=== PATIENT | female | born 1965 | race Caucasian/White ===

== ENCOUNTER 2019-12-14 06:09 | Day surgery (SDC) | payer BC ==
[2019-12-14] MEDS ORDERED: Lactated Ringers 1,000 ML IV SCH (06:30)
[2019-12-14] MEDS ORDERED: DIPRIVAN 200 MG/20 ML IV ONE ×2 (07:49→07:50)
[2019-12-14] MEDS ORDERED: Ketamine HCl 50 MG/ML ONE (07:50)
[2019-12-14 09:03] VITALS: O2SAT 94
[2019-12-14 09:16] VITALS: BP 162/85; PULSE 59
[2019-12-14] MEDS ORDERED: Lactated Ringers 1,000 ML IV ONE (14:54)
--- NOTE | 2019-12-14 15:05 | OP ---
SURGERY DATE: 12/14/2019 SURGERY TIME: 803 PREOPERATIVE DIAGNOSIS: 1. SCREENING COLONOSCOPY. 2. FAMILY HISTORY OF COLON CANCER. POSTOPERATIVE DIAGNOSIS: 1. SMALL SESSILE POLYP IN THE HEPATIC FLEXURE. PROCEDURE: 1. Colonoscopy. SURGEON: Dr. Baltazar Lima. ANESTHESIA: MAC by Yimi Rawls CRNA. SPECIMENS: 1. Hot forceps polypectomy from the hepatic flexure X 1. ESTIMATED BLOOD LOSS: Minimal. DESCRIPTION OF PROCEDURE: After informed written consent was obtained, the patient was taken to the endoscopy suite. She underwent monitored anesthesia and was placed in the left lateral decubitus position. Digital rectal exam showed normal sphincter tone and no internal lesions. The scope was inserted in the rectum and sequentially the entire colonic mucosa was traversed and verified with direct visualization of the ileocecal valve. Upon withdrawal, careful mucosal inspection revealed a small sessile polyp in the hepatic flexure which was grasped with forceps, cauterized, and removed in its entirety. Complete removal of lesion and good hemostasis were achieved after inspection following removal. No other lesions were encountered upon withdrawal. Prior to withdrawal, retroflexion showed no internal lesions. The scope was removed and the patient was transferred to the recovery room in good condition.
== END 2019-12-14 09:30 | disposition home or self-care (01) ==
LOC: SDC 06:09
PROVIDERS: ATTEND Family Medicine
DX: Z12.11 Encounter for screening for malignant neoplasm of colon (principal); Z80.0 Family history of malignant neoplasm of digestive organs; D12.3 Benign neoplasm of transverse colon; E78.5 Hyperlipidemia, unspecified; E03.9 Hypothyroidism, unspecified; Z79.899 Other long term (current) drug therapy
CPT/HCPCS: 88305; J2704

== ENCOUNTER 2021-10-16 05:43 | Day surgery (SDC) | payer BC ==
[~2021-10-16 05:43] MED LIST: Lactated Ringers 1,000 ML IV ONE
[2021-10-16] MEDS ORDERED: Lactated Ringers 1,000 ML IV SCH (06:00)
[2021-10-16] MEDS ORDERED: DIPRIVAN 200 MG/20 ML IV ONE (07:01)
[2021-10-16] MEDS ORDERED: Xylocaine-Mpf 2% 5 Ml Vial ONE (07:01)
[2021-10-16] MEDS ORDERED: Versed 2 MG/2 ML Injection ONE (07:01)
[2021-10-16 07:31] VITALS: O2SAT 94
[2021-10-16 07:43] VITALS: BP 150/94; PULSE 68
--- NOTE | 2021-10-16 09:14 | OP ---
SURGERY DATE/TIME: 10/16/2021 0705 PREOPERATIVE DIAGNOSIS: Persistent cough. POSTOPERATIVE DIAGNOSES: 1) Gastroparesis. 2) Hiatal hernia. PROCEDURE: EGD. SURGEON: Baltazar Lima M.D. ANESTHESIA: MAC by Yimi Rawls CRNA. ESTIMATED BLOOD LOSS: None. SPECIMENS: None. DESCRIPTION OF PROCEDURE: After informed written consent was obtained, the patient was taken to the endoscopy suite. She had a bite block inserted and anesthesia was titrated to the desired level of consciousness. Under direct visualization the esophagus was easily traversed. The esophageal mucosa had a normal appearance. Upon entering the gastric cavity there was a moderate sized hiatal hernia notable. There was undigested food immediately encountered upon entering into the stomach. The pylorus was traversed. The first and second portions of the duodenum showed no obvious ulceration or inflammatory changes. The same was true for the antrum which was free of any lesions or defects. Retroflexion showed a good view of the hiatal hernia. Again upon withdrawal, undigested food was encountered in the gastric cavity but no other obvious abnormality other than the hiatal hernia. The scope was removed and the patient was transferred to the recovery room in good condition. At this time I have made the recommendation of increasing her omeprazole dose to 40 mg daily and counseled on a low residue diet, small meals frequently due to the gastroparesis presumably from recently diagnosed diabetes type II. If these measures do not improve her symptoms, I did let her know that she could consider requesting referral to the [facility].
== END 2021-10-16 07:50 | disposition home or self-care (01) ==
LOC: SDC 05:43
PROVIDERS: ATTEND Family Medicine
DX: K31.84 Gastroparesis (principal); K44.9 Diaphragmatic hernia without obstruction or gangrene; E11.9 Type 2 diabetes mellitus without complications; Z79.899 Other long term (current) drug therapy; R05.3 Chronic cough
CPT/HCPCS: 82947; J2250; J2704

== ENCOUNTER 2022-12-17 05:55 | Day surgery (SDC) | payer BC ==
[2022-12-17] MEDS: Lactated Ringers 1,000 ML IV SCH (07:00)
[2022-12-17] MEDS ORDERED: DIPRIVAN 200 MG/20 ML IV ONE ×2 (07:54→08:20)
[2022-12-17] MEDS ORDERED: Xylocaine-Mpf 2% 5 Ml Vial ONE (07:54)
[2022-12-17 09:19] VITALS: O2SAT 95
[2022-12-17 09:28] VITALS: BP 124/82; PULSE 69
--- NOTE | 2022-12-17 09:43 | OP ---
SURGERY DATE/TIME: 12/17/2022 0810 PREOPERATIVE DIAGNOSIS: Screening colonoscopy. POSTOPERATIVE DIAGNOSES: 1) Sigmoid colon polyp. 2) Diffuse diverticulosis. PROCEDURE: Colonoscopy. SURGEON: Balatzar Lima M.D. ANESTHESIA: MAC by Saurabh Lorenzo CRNA. ESTIMATED BLOOD LOSS: Minimal. SPECIMENS: Hot forceps polypectomy from distal sigmoid colon. DESCRIPTION OF PROCEDURE: After informed written consent was obtained, the patient was taken to the endoscopy suite. She was placed in left lateral decubitus position and anesthesia was titrated to desired level of consciousness. Digital rectal exam showed normal sphincter tone and no internal lesions. The scope was inserted into the rectum and sequentially the entire colonic mucosa was traversed. The level of cecum was reached and verified with direct visualization of the ileocecal valve. Upon withdrawal careful mucosal inspection revealed diffuse scattered diverticula throughout the entire length of the colon. No evidence of bleeding or other lesions until the distal sigmoid was reached where there was a small sessile polyp. It was grasped with forceps, cauterized and removed in its entirety and sent for pathology testing. Prior to withdrawal retroflexion showed no internal lesions. The scope was removed. The patient was transferred to the recovery room in good condition.
== END 2022-12-17 09:32 | disposition home or self-care (01) ==
LOC: SDC 05:55
PROVIDERS: ATTEND Family Medicine
DX: Z12.11 Encounter for screening for malignant neoplasm of colon (principal); K63.5 Polyp of colon; K57.30 Diverticulosis of large intestine without perforation or abscess without bleeding; E11.9 Type 2 diabetes mellitus without complications
CPT/HCPCS: 82947; 88305; J2704

== ENCOUNTER 2023-03-07 09:12 | Emergency (ER) | payer BC ==
--- NOTE | 2023-03-07 09:15 | ERPHSYRPT ---
- History of Present Illness Time Seen by Provider: 03/07/23 09:14 Historian: patient, family Exam Limitations: no limitations Physician History: This is a 57-year-old white female patient of Dr. Lima who has a history of diabetes, hypertension, hyperlipidemia, gastroesophageal disease and hypothyroidism. She presents with pain in her internal anus approximately 2-2 and half centimeters proximal to the anal orifice. Patient recalls that 6 days ago she was eating pork that was wrapped in bridges and it was held together with a toothpick. Patient specifically recalls taking a bite and noticing there was only half a toothpick remaining. She was not concerned thinking that this toothpick would pass on its own. However, there was a sudden onset of pain in the above-stated area this morning when she was having a bowel movement. She then performed a digital examination herself and could feel which she believed to be the other half of the toothpick. Patient has no abdominal pain. She has no chest pain. She has no shortness of breath Timing/Duration: today Activities at Onset: none Quality: sharpness Abdominal Pain Onset Location: other (Just proximal to the anal orifice intraluminally) Pain Radiation: no radiation Severity of Pain-Max: moderate Severity of Pain-Current: moderate Associated Symptoms: denies symptoms Previous symptoms: no prior history Allergies/Adverse Reactions: No Known Drug Allergies Allergy (Verified 03/07/23 09:36) Home Medications: Levothyroxine Sodium 150 mcg PO DAILY 01/03/14 [History] Rosuvastatin Calcium [Crestor] 30 mg PO DAILY 01/03/14 [History] estradioL [Estradiol] 0.5 mg PO DAILY 12/11/19 [History] Semaglutide [Ozempic] 0.5 mg SQ WEEKLY 10/15/21 [History] lisinopriL [Zestril] 25 mg PO DAILY 10/26/22 [History] Hx Influenza Vaccination/Date Given: No Hx Pneumococcal Vaccination/Date Given: No Travel Risk - International Travel Have you traveled outside of the country in past 3 weeks: No - Coronavirus Screening Are you exhibiting any of the following symptoms?: No Close contact with a COVID-19 positive Pt in past 14-21 Days: No - Review of Systems Constitutional: No Symptoms Eyes: No Symptoms Ears, Nose, & Throat: No Symptoms Respiratory: No Symptoms Cardiac: No Symptoms Abdominal/Gastrointestinal: Other (On digital, anal rectal exam I can feel, what I believe to be a toothpick, bridging across the lumen approximately 2 to 2-1/2 cm proximal to the anal opening. It is tender to palpation.) Genitourinary Symptoms: No Symptoms Musculoskeletal: No Symptoms Skin: No Symptoms Neurological: No Symptoms Psychological: No Symptoms Endocrine: No Symptoms Hematologic/Lymphatic: No Symptoms Immunological/Allergic: No Symptoms All Other Systems: Reviewed and Negative - Past Medical History Pertinent Past Medical History: Yes Neurological History: No Pertinent History ENT History: No Pertinent History Cardiac History: High Cholesterol Respiratory History: No Pertinent History Endocrine Medical History: Diabetes Type II, Hypothyroidism Musculoskeletal History: Osteoarthritis GI Medical History: GERD History: No Pertinent History Psycho-Social History: No Pertinent History Female Reproductive Disorders: No Pertinent History Other Medical History: fluid in ears, hernia is hiatal hernia. - Past Surgical History Past Surgical History: Yes Neuro Surgical History: No Pertinent History Cardiac: No Pertinent History Respiratory: No Pertinent History Gastrointestinal: No Pertinent History Genitourinary: No Pertinent History Musculoskeletal: Joint Replacement, Orthopedic Surgery Female Surgical History: Hysterectomy, Tubal Ligation Other Surgical History: bilateral knee arthroscopy then partial bilateral knee replacement - Social History Smoking Status: Never smoker Exposure to second hand smoke: No Drug Use: none - Nursing Vital Signs Nursing Vital Signs: Initial Vital Signs Temperature 97.7 F 03/07/23 09:28 Pulse Rate 87 03/07/23 09:28 Blood Pressure 181/114 03/07/23 09:28 O2 Sat by Pulse Oximetry 96 03/07/23 09:28 Pain Scale Pain Intensity 1 - Physical Exam General Appearance: no apparent distress, alert, anxiety Eye Exam: PERRL/EOMI, eyes nml inspection Ears, Nose, Throat Exam: normal ENT inspection, moist mucous membranes Neck Exam: normal inspection, non-tender, supple, full range of motion Respiratory Exam: normal breath sounds, lungs clear, airway intact, No chest tenderness, No respiratory distress Gastrointestinal/Abdomen Exam: No tenderness Rectal Exam: normal rectal tone, hemorrhoids (Single external hemorrhoid), other (Approximately 2-2 and half centimeters proximal to the anal orifice opening, there is a palpable, tender foreign body bridging across the lumen of the anal canal.) Back Exam: normal inspection, normal range of motion, No CVA tenderness, No vertebral tenderness Extremity Exam: normal inspection, normal range of motion, pelvis stable Neurologic Exam: alert, oriented x 3, cooperative, commercial photographer II-XII nml as tested, normal mood/affect, nml cerebellar function, nml station & gait, sensation nml Skin Exam: normal color, warm, dry Lymphatic Exam: No adenopathy SpO2 Interpretation: normal Procedures - Additional Procedures Progress: Timeout performed at 0948. Anorectal exam performed digitally. Using digital e xamination and hemostat, half of the toothpick was removed. There was no retained foreign body. There were no complications and the patient tolerated the procedure well. - Course Nursing assessment & vital signs reviewed: Yes - Progress Progress: improved Progress Note: 03/07/23 09:58 This patient's medical issues is of low complexity. The level of complexity in the work-up performed is based on review of the patient's past medical history, review of the patient's medication list, review the patient drug allergy list, history of present illness and physical exam findings. No laboratory or radiographic studies necessary. Foreign body was removed under anorectal digital examination and using a hemostat. Counseled pt/family regarding: diagnosis Medical Desision Making - Independent Historian Additional History obtained from: Child - Diagnostic Testing Diagnostic test were ordered, analyzed, and reviewed by me: No - Risk of complications The pt has a mod risk of morbidity or mortality based on: Need for prescription drug management - Departure Departure Disposition: Home Clinical Impression: Anal foreign body Condition: Stable Critical Care Time: No Referrals: LAURE LIMA MD [Primary Care Provider] - Follow up/PCP as directed Additional Instructions: Sitz bath 2 times daily with warm soapy water or warm Epsom salt soaks for at least 2 to 3 days. May use Tylenol and ibuprofen for pain control. Take the antibiotics if you notice the pain persisting and not improving over 48 hours. Expect some bleeding for the next 3 to 5 days but this should decrease. Follow- up with your primary care provider for further evaluation and management. Prescriptions: Metronidazole 500 mg [Flagyl 500 MG] 500 mg PO TID #21 tablet
[2023-03-07 09:36] VITALS: BP 181/114; PULSE 87; TEMP 97.7
[2023-03-07 09:52] VITALS: O2SAT 99
== END 2023-03-07 10:05 | disposition home or self-care (01) ==
LOC: ED 09:12
DX: T18.5XXA Foreign body in anus and rectum, initial encounter (principal); E11.9 Type 2 diabetes mellitus without complications; I10 Essential (primary) hypertension; E78.5 Hyperlipidemia, unspecified; Z79.85 Long-term (current) use of injectable non-insulin antidiabetic drugs; Z79.899 Other long term (current) drug therapy
CPT/HCPCS: 99281